=== PATIENT | female | born 1955 | race Caucasian/White ===

== ENCOUNTER 2017-12-30 17:57 | Emergency (ER) | payer MEDICAID, OTHER ==
[2017-12-30 17:57] VITALS: BMI 27.4
--- NOTE | 2017-12-30 19:09 | ED PDOC ---
Arrival/HPI - General Chief Complaint: Upper Extremity Problem/Injury Time Seen by Provider: 12/30/17 19:04 Historian: Patient - History of Present Illness Narrative History of Present Illness (Text): 12/30/17 19:07 A 62 year old male, with no significant past medical history, presents to the emergency department complaining of left upper back pain radiating to left shoulder and left arm. Patient reports . Patient denies any trauma/fall, fever, chills, or any other complaints at this time. PMD: Dr. Zamudio Past Medical History - Provider Review Nursing Documentation Reviewed: Yes - Infectious Disease Hx of Infectious Diseases: None - Tetanus Immunization Tetanus Immunization: Unknown - Past Medical History Past Medical History: No Previous - Cardiac Hx Cardiac Disorders: No - Pulmonary Hx Respiratory Disorders: No - Neurological Hx Neurological Disorder: No - HEENT Hx HEENT Disorder: No - Renal Hx Renal Disorder: No - Endocrine/Metabolic Hx Endocrine Disorders: No - Hematological/Oncological Hx Blood Disorders: No - Integumentary Hx Dermatological Disorder: No - Musculoskeletal/Rheumatological Hx Musculoskeletal Disorders: No - Gastrointestinal Hx Gastrointestinal Disorders: Yes Hx Gall Bladder Disease: Yes (STONES) Other/Comment: FIBROID SURGERY AND GALLSTONE REMOVED. - Genitourinary/Gynecological Hx Genitourinary Disorders: No - Psychiatric Hx Psychophysiologic Disorder: No Hx Substance Use: No - Surgical History Other/Comment: UTERINE FIBROIDS REMOVED, GALLSTONES REMOVED - Anesthesia Hx Anesthesia: Yes Hx Anesthesia Reactions: No Hx Malignant Hyperthermia: No - Suicidal Assessment Feels Threatened In Home Enviroment: No Family/Social History - Physician Review Nursing Documentation Reviewed: Yes Family/Social History: No Known Family HX Smoking Status: Never Smoked Hx Alcohol Use: No Hx Substance Use: No Hx Substance Use Treatment: No Allergies/Home Meds Allergies/Adverse Reactions: Allergies No Known Allergies Allergy (Verified 12/30/17 18:12) Review of Systems - Physician Review All systems were reviewed & negative as marked: Yes - Review of Systems Constitutional: absent: Fevers, Night Sweats, Other (no trauma/fall) Musculoskeletal: Back Pain (upper back pain radiating to left shoulder and left arm) Physical Exam Vital Signs Reviewed: Yes Vital Signs Temp Pulse Resp BP Pulse Ox 12/30/17 18:13 98.2 F 64 18 122/80 98 Temperature: Afebrile Blood Pressure: Normal Pulse: Regular Respiratory Rate: Normal Appearance: Positive for: Well-Appearing, Non-Toxic, Comfortable Pain Distress: None Mental Status: Positive for: Alert and Oriented X 3 - Systems Exam Head: Present: Atraumatic, Normocephalic Pupils: Present: PERRL Extroacular Muscles: Present: EOMI Conjunctiva: Present: Normal Neck: Present: Normal Range of Motion Respiratory/Chest: Present: Clear to Auscultation, Good Air Exchange. No: Respiratory Distress, Accessory Muscle Use Cardiovascular: Present: Regular Rate and Rhythm, Normal S1, S2. No: Murmurs Abdomen: No: Tenderness, Distention, Peritoneal Signs Back: Present: Normal Inspection Upper Extremity: Present: Normal Inspection, Normal ROM. No: Cyanosis, Edema Lower Extremity: Present: Normal Inspection. No: Edema Neurological: Present: GCS=15, CN II-XII Intact, Speech Normal Skin: Present: Warm, Dry, Normal Color. No: Rashes Psychiatric: Present: Alert, Oriented x 3, Normal Insight, Normal Concentration Medical Decision Making ED Course and Treatment: 12/30/17 19:10 Impression: 62 year old female with left upper back pain radiating to left shoulder and left arm. Plan: -- Toradol -- Valium -- Reassess and disposition Progress Notes: - Medication Orders Current Medication Orders: Discontinued Medications Diazepam (Valium) 5 mg PO ONCE ONE PRN Reason: Protocol Stop: 12/30/17 19:10 Last Admin: 12/30/17 19:21 Dose: 5 mg Ketorolac Tromethamine (Toradol) 30 mg IM STAT STA Stop: 12/30/17 19:09 Last Admin: 12/30/17 19:20 Dose: 30 mg MAR Pain Assessment Document 12/30/17 19:20 MS (Rec: 12/30/17 19:20 MS [id number]) Pain Reassessment Is this a pain reassessment? No Sleep Is patient sleeping during reassessment? No Presence of Pain Presence of Pain Yes Pain Scale Used Pain Scale Used Numeric Location Left, Right or Bilateral Left Pain Location Body Site Back Description Description Constant Intensity of Pain at present 8 Pain Behavior Moaning IM Administration Charges Document 12/30/17 19:20 MS (Rec: 12/30/17 19:20 MS [id number]) Injection Site MAR Injection Site Left Deltoid Charges for Administration # of IM Administrations 1 - Scribe Statement The provider has reviewed the documentation as recorded by the Scribe Enma Galvan Provider Scribe Attestation: All medical record entries made by the Scribe were at my direction and personally dictated by me. I have reviewed the chart and agree that the record accurately reflects my personal performance of the history, physical exam, medical decision making, and the department course for this patient. I have also personally directed, reviewed, and agree with the discharge instructions and disposition. Disposition/Present on Arrival - Present on Arrival Any Indicators Present on Arrival: No History of DVT/PE: No History of Uncontrolled Diabetes: No Urinary Catheter: No History of Decub. Ulcer: No History Surgical Site Infection Following: None - Disposition Have Diagnosis and Disposition been Completed?: Yes Diagnosis: Musculoskeletal pain Disposition Time: 20:15 Patient Plan: Discharge Patient Problems: Current Active Problems Problem Status Onset Musculoskeletal pain Acute Condition: GOOD Prescriptions: Cyclobenzaprine [Cyclobenzaprine HCl] 10 mg PO Q8 5 Days #15 tab Ibuprofen [Motrin] 600 mg PO Q6 5 Days #20 tab Referrals: Mireya Zamudio MD [Primary Care Provider] - Follow up with primary Forms: [employer] (Persian)
[2017-12-30 22:28] VITALS: BP 122/84; PULSE 82; RESP 16; O2SAT 99
[2017-12-30 22:30] VITALS: TEMP 97.8
== END 2017-12-30 22:28 | disposition home or self-care (01) ==
LOC: ED 17:57
DX: M79.1 Myalgia (principal)
CPT/HCPCS: 96372; 99283; J1885

== ENCOUNTER → 2018-09-19 | Outpatient (CLI) | payer MEDICAID | LOC: RAD 15:51 ==

== ENCOUNTER 2018-09-26 16:12 | Outpatient (CLI) | payer MEDICAID | END 2018-09-26 16:13 | disposition home or self-care (01) | LOC: RAD 16:12 ==